=== PATIENT | female | born 1980 | race Caucasian/White ===

== ENCOUNTER 2018-11-25 13:56 | Emergency (ER) | payer MEDICAID ==
[~2018-11-25] VITALS: Ht 162.6 cm; Wt 76.8 kg
[~2018-11-25 13:56] MED LIST: FLUO10CA13 PO; GABA-826 PO; NITR100C56 PO; PNV11TAB5 PO; PRAZ1CAP2 PO
[2018-11-25] MEDS ORDERED: METH40TA3 PO (14:28)
--- NOTE | 2018-11-25 14:28 | NUR ---
First contact with pt. Pt c/o bilat hand swelling and pain x3-4 days. Pt denies injury, change in diet or medication, no suspected source. CMS intact in bilat UEs. Pt positioned for comfort in bed with warm blanket, denies other needs.
[2018-11-25 14:53] LABS: CULTURE INDICATED? YES; MICROSCOPIC INDICATED
[2018-11-25 14:57] LABS: BASOPHILS # (AUTO) 0.02 x10^3/uL (0-0.1); BASOPHILS % (AUTO) 0 % (0-1); EOSINOPHILS # (AUTO) 0.21 x10^3/uL (0-0.4); EOSINOPHILS % (AUTO) 4 % (1-7); LYMPHOCYTES # (AUTO) 1.16 x10^3/uL (1-3.4); LYMPHOCYTES % (AUTO) 22 % (22-44); MD NO; MEAN CORPUSCULAR HEMOGLOBIN 29.1 pg (27.0-34.8); MEAN CORPUSCULAR HGB CONC 32.9 g/dL (32.4-35.8); MEAN CORPUSCULAR VOLUME 88.2 fL (80-100); MEAN PLATELET VOLUME 7.6 fL (7.4-10.4); MONOCYTES # (AUTO) 0.46 x10^3/uL (0.2-0.8); MONOCYTES % (AUTO) 9 % (2-9); NEUTROPHILS # (AUTO) 3.55 x10^3/uL (1.8-6.8); NEUTROPHILS % (AUTO) 66 % (42-75); PLATELET COUNT 307 x10^3/uL (130-400); RED BLOOD COUNT 4.21 x10^6/uL (3.82-5.3)
[2018-11-25 15:00] LABS: INTERNATIONAL NORMALIZED RATIO 0.95 (0.93-1.1)
[2018-11-25 15:02] LABS: ALANINE AMINOTRANSFERASE 35 U/L (12-78); ALBUMIN 3.4 g/dL (3.4-5.0); ANION GAP 3 mmol/L (5-15); CALCIUM 8.2 mg/dL (8.5-10.1); CHLORIDE 110 mmol/L (98-107); CREATININE 0.68 mg/dL (0.55-1.02)
--- NOTE | 2018-11-25 15:06 | NUR ---
Pt resting in bed with eyes closed, resp even and unlabored, NADN.
[2018-11-25 15:12] LABS: ALKALINE PHOSPHATASE 64 U/L (45-117); BILIRUBIN,TOTAL 0.2 mg/dL (0.2-1.0); T4 (THYROXINE) 8.3 mcg/dL (4.8-13.9); TOTAL PROTEIN 6.7 g/dL (6.4-8.2)
--- NOTE | 2018-11-25 15:40 | NUR ---
Dr. Plasencia at bedside to discuss POC with pt.
[2018-11-25 15:58] VITALS: BP 130/74
== END 2018-11-25 16:00 | disposition home or self-care (01) ==
LOC: ED 15:17
DX: M79.89 Other specified soft tissue disorders (principal); N30.00 Acute cystitis without hematuria; F17.200 Nicotine dependence, unspecified, uncomplicated
CPT/HCPCS: 36415; 80053; 81001; 83735; 84436; 84443; 85025; 85610; 85730; 86308; 87086; 99283

== ENCOUNTER 2019-02-17 20:27 | Emergency (ER) | payer MEDICAID ==
[~2019-02-17] VITALS: Ht 162.6 cm; Wt 80.8 kg
[2019-02-17 20:34] VITALS: BP 134/85
== END 2019-02-17 21:58 | disposition home or self-care (01) ==
LOC: ED 21:34
DX: L03.113 Cellulitis of right upper limb (principal); L02.413 Cutaneous abscess of right upper limb; E03.9 Hypothyroidism, unspecified
CPT/HCPCS: 10060; 99283

== ENCOUNTER 2019-04-13 15:43 | Emergency (ER) | payer MEDICAID ==
[~2019-04-13] VITALS: Ht 162.6 cm; Wt 84.7 kg
[~2019-04-13 15:43] MED LIST changes: +METH40TA3 PO
[2019-04-13 15:47] VITALS: BP 119/68
--- NOTE | 2019-04-13 15:57 | NUR ---
PATIENT PRESENTS TO ED TODAY FOR RT LEG PAIN, DENIES INJURY. HX OF MRSA, ISO PRECAUTIONS IN PLACE. AWAITING ORDERS, CALL LIGHT WITHIN REACH.
[2019-04-13] MEDS ORDERED: KETOROLAC 30 MG/1 ML ONE (16:27)
[2019-04-13] MEDS ORDERED: KETOROLAC 30 MG/1 ML IM ONE (16:30)
--- NOTE | 2019-04-13 18:05 | NUR ---
Patient/Caregiver given discharge instructions and they have confirmed that they understand the instructions. Patient educated/demonstrates proper use of crutches. Patient ambulatory with steady gait with crutches.
== END 2019-04-13 18:07 | disposition home or self-care (01) ==
LOC: ED 16:41
DX: M25.551 Pain in right hip (principal); E03.9 Hypothyroidism, unspecified; F32.9 Major depressive disorder, single episode, unspecified; F17.200 Nicotine dependence, unspecified, uncomplicated
CPT/HCPCS: 73502; 93971; 96372; 99284; J1885

== ENCOUNTER 2019-08-21 18:57 | Emergency (ER) | payer MEDICAID ==
[~2019-08-21] VITALS: Ht 162.6 cm; Wt 85.8 kg
[2019-08-21 19:05] VITALS: BP 125/49
== END 2019-08-21 20:08 | disposition home or self-care (01) ==
LOC: ED 20:02
DX: B02.9 Zoster without complications (principal); J02.9 Acute pharyngitis, unspecified; E03.9 Hypothyroidism, unspecified; F17.200 Nicotine dependence, unspecified, uncomplicated; Z93.6 Other artificial openings of urinary tract status
CPT/HCPCS: 99283

== ENCOUNTER 2019-10-08 06:17 | Emergency (ER) | payer MEDICAID ==
[~2019-10-08] VITALS: Ht 162.6 cm; Wt 83.0 kg
[2019-10-08 06:24] VITALS: BP 163/90
--- NOTE | 2019-10-08 06:40 | NUR ---
PT C/O RIGHT UPPER GUM PAIN AND HAS SMALL ABCESS. PT ALSO REPORTS SHINGLES OUTBREAK ACROSS RIGHT SIDE. REPORTS COMING IN X1 MONTH AGO AND MEDICATION DIDNT HELP. PT DENIES OTHER C/O AT THIS TIME. MONITORING IN PLACE, CALL LIGHT WITHIN REACH. PT MEDICATED PER NOV.
[2019-10-08] MEDS ORDERED: BENZOCAINE 20% SPRAY 0.5ML ONE (06:42)
[2019-10-08] MEDS ORDERED: HYDROcodone/APAP 5/325 TABLET ONE (06:42)
--- NOTE | 2019-10-08 06:49 | NUR ---
BS REPORT TO [facility].
[2019-10-08] MEDS ORDERED: HYDROcodone/APAP 5/325 TABLET PO ONE (07:00)
[2019-10-08] MEDS ORDERED: BENZOCAINE 20% SPRAY 0.5ML TP ONE (07:00)
== END 2019-10-08 07:17 | disposition home or self-care (01) ==
LOC: ED 07:11
DX: K02.9 Dental caries, unspecified (principal); K04.7 Periapical abscess without sinus; B02.9 Zoster without complications; E03.9 Hypothyroidism, unspecified
CPT/HCPCS: 41800; 99283

== ENCOUNTER 2019-10-24 03:05 | Emergency (ER) | payer MEDICAID ==
[~2019-10-24] VITALS: Ht 162.6 cm; Wt 83.9 kg
[2019-10-24 03:16] VITALS: BP 141/85
[2019-10-24] MEDS ORDERED: HYDROcodone/APAP 5/325 TABLET ONE (03:50)
[2019-10-24] MEDS ORDERED: CLINDAMYCIN 300 MG CAPSULE ONE (03:50)
[2019-10-24] MEDS ORDERED: HYDROcodone/APAP 5/325 TABLET PO ONE (04:00)
[2019-10-24] MEDS ORDERED: CLINDAMYCIN 300 MG CAPSULE PO ONE (04:00)
== END 2019-10-24 04:00 | disposition home or self-care (01) ==
LOC: ED 03:28
DX: K08.89 Other specified disorders of teeth and supporting structures (principal); E03.9 Hypothyroidism, unspecified; F17.210 Nicotine dependence, cigarettes, uncomplicated
CPT/HCPCS: 99283

== ENCOUNTER 2020-03-07 00:13 | Emergency (ER) | payer MEDICAID ==
[~2020-03-07] VITALS: Ht 162.6 cm; Wt 75.9 kg
--- NOTE | 2020-03-07 00:16 | NUR ---
CALLED IN LOBBY, NO PT LOCATED
--- NOTE | 2020-03-07 00:22 | NUR ---
NO PT IN LOBBY AT CALL X2
--- NOTE | 2020-03-07 02:21 | NUR ---
re-evaluation done. patient discharged with prescriptions and instruction. verbalized understanding.
[2020-03-07 02:24] VITALS: BP 139/85
== END 2020-03-07 02:33 | disposition home or self-care (01) ==
LOC: ED 02:00
DX: M25.531 Pain in right wrist (principal); E03.9 Hypothyroidism, unspecified; F17.210 Nicotine dependence, cigarettes, uncomplicated; Z72.9 Problem related to lifestyle, unspecified
CPT/HCPCS: 99283; 99406